=== PATIENT | female | born 1995 | race Caucasian/White ===

== ENCOUNTER 2019-11-09 10:43 | Outpatient (CLI) | payer BC | END 2019-11-09 10:44 | disposition home or self-care (01) | LOC: LAB 10:43 | PROVIDERS: ATTEND Physician Assistant | DX: Z76.89 Persons encountering health services in other specified circumstances (principal); Z20.828 Contact with and (suspected) exposure to other viral communicable diseases | CPT/HCPCS: 81599 ==

== ENCOUNTER 2023-10-14 08:00 | Outpatient (CLI) | payer BC, OTHER | END 2023-10-14 23:59 | disposition home or self-care (01) | LOC: LAB.S 08:00 | PROVIDERS: ATTEND Emergency Medicine | DX: J06.9 Acute upper respiratory infection, unspecified (principal) | CPT/HCPCS: 87070 ==